=== PATIENT | female | born 1970 | race Two or more races ===

== ENCOUNTER 2017-09-04 11:12 | Outpatient (CLI) | payer OTHER ==
[~2017-09-04 11:12] MED LIST: AMLODIPINE BESYL5 MG; ANTIVERT25 M1 PO; ASA325 M1; ATORVASTATIN CA40 MG; BENICAR5 MG; CATAPRES0.1 MG; GABAPENTIN100 MG; HUMALOG MIX 75/23 ML; IMDUR30 MG; ISOSORBIDE DINI30 MG; LANTUS100 U/ML; LIPOFLAVOVIT CA1 TAB PO; LOSARTAN-HCTZ1 EAC1; PROTONIX40 MG PO; SYNTHROID50 MCG; ULTRACET PO; ZOFRAN4 MG SL
== END 2017-09-04 11:20 | disposition home or self-care (01) ==
LOC: LAB 11:12
DX: I11.9 Hypertensive heart disease without heart failure (principal); R82.79 Other abnormal findings on microbiological examination of urine